=== PATIENT | female | born 1985 | race Caucasian/White ===

== ENCOUNTER 2022-11-11 04:36 | Observation (INO) | payer BC, SELFPAY ==
[2022-11-11] VITALS (13 sets, daily range): BP systolic 100–170; BP diastolic 54–103; PULSE 76–108; RESP 16–21; TEMP 36.7–37.1; O2SAT 93–99; BMI 53.1; BMI 62.8
--- NOTE | 2022-11-11 04:38 | CT_ITS ---
PROCEDURE INFORMATION: Exam: CT Abdomen And Pelvis With Contrast Exam date and time: 11/11/2022 5:25 AM Age: 37 years old Clinical indication: Nausea and vomiting; Abdominal pain; Epigastric; Additional info: Epigastric pain n/v/d TECHNIQUE: Imaging protocol: Computed tomography of the abdomen and pelvis with contrast. Radiation optimization: All CT scans at this facility use at least one of these dose optimization techniques: automated exposure control; mA and/or kV adjustment per patient size (includes targeted exams where dose is matched to clinical indication); or iterative reconstruction. Contrast material: ISOVUE; Contrast volume: 75 ml; Contrast route: IV; REPORTING DATA: Count of CT and Cardiac NM exams in prior 12 months: This patient has received 0 known CTs and 0 known cardiac nuclear medicine studies in the 12 months prior to the current study. COMPARISON: No relevant prior studies available. FINDINGS: Liver: The liver is low in density. Gallbladder and bile ducts: Prior cholecystectomy. Pancreas: Normal. No ductal dilation. Spleen: Normal. No splenomegaly. Adrenal glands: Normal. No mass. Kidneys and ureters: Normal. No hydronephrosis. Stomach and bowel: Unremarkable. No obstruction. No mucosal thickening. Appendix: No evidence of appendicitis. Intraperitoneal space: Unremarkable. No free air. No significant fluid collection. Vasculature: Unremarkable. No abdominal aortic aneurysm. Lymph nodes: There is some increased density in the central portion of the mesentery as well as some mildly prominent mesenteric lymph nodes. Urinary bladder: Unremarkable as visualized. Reproductive: 3.1 cm hypodensity in the right adnexa. Bones/joints: Unremarkable. No acute fracture. Soft tissues: Unremarkable. IMPRESSION: 1. No evidence of bowel obstruction or other acute process. 2. 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 3. Diffuse hepatic steatosis. 4. Prior cholecystectomy. 5. 3.1 cm right adnexal hypodensity likely prominent follicle.
[2022-11-11 04:53] LABS: Basophils % 0.1 % (0.1-2.0); Eosinophils # 0.2 K/mm3 (0.0-0.4); Eosinophils % 1.7 % (0.1-12.0); Hematocrit 45.2 % (37.0-47.0); Hemoglobin 14.6 g/dL (12.2-16.2); Lymphocytes # 1.6 K/mm3 (0.7-4.5); Lymphocytes % 12.4 % (10-50); Mean Corpuscular HGB Conc 32.2 g/dL (31.8-35.4); Mean Corpuscular Hemoglobin 27.3 pg (27.0-31.2); Mean Corpuscular Volume 84.7 fl (81-99); Mean Platelet Volume 8.1 fl (7.4-10.4); Monocytes # 0.3 K/mm3 (0.1-1.0); Monocytes % 2.3 % (1.7-9.3); Neutrophils # 10.6 K/mm3 (1.8-7.8); Neutrophils % 83.4 % (37.0-80.0); Platelet Count 490 K/mm3 (142-424); Red Blood Count 5.34 M/mm3 (4.20-5.40); White Blood Count 12.6 K/mm3 (4.8-10.8)
[2022-11-11 05:11] LABS: HCG Qualitative, Serum Negative (Negative)
[2022-11-11 05:24] LABS: Alanine Aminotransferase 28 U/L (12-78); Albumin/Globulin Ratio 1.3 (1.1-1.8); Alkaline Phosphatase 82 U/L (38-126); Amylase 55 U/L (30-110); Anion Gap 16.2 mEq/L (5-15); Aspartate Amino Transferase 40 U/L (14-36); Bilirubin,Total 0.6 mg/dl (0.2-1.3); Blood Urea Nitrogen 11 mg/dl (7-17); Calcium 8.2 mg/dl (8.4-10.2); Carbon Dioxide 24 mmol/L (22.0-30.0); Chloride 97 mmol/L (98-107); Creatinine Clearance Estimated 95 mL/min (50-200); Estimated Glomerular Filt Rate 94 ml/min (>60); GFR (African American) 114 ML/MIN (>60); Globulin 3.2 g/dL (1.3-3.2); Glucose 239 mg/dl (74-100); Lipase 51 U/L (23-300); Potassium 3.2 mmoL/L (3.5-5.1); Sodium 134 mmol/L (136-145); Total Protein,Serum 7.2 g/dl (6.3-8.2)
[2022-11-11 05:29] LABS: C-Reactive Protein 26.7 mg/L (0-4)
[2022-11-11 05:35] LABS: Erythrocyte Sedimentation Rate 27 mm/hr (0-20)
[2022-11-11 05:43] LABS: Procalcitonin 0.064 ng/mL (0.0-2.0)
[2022-11-11 05:52] LABS: Microscopic, Urine URINE MICROSCOPIC (MICROSCOPIC)
[2022-11-11 05:53] LABS: Blood, Urine 1+ (Negative); Color,Urine YELLOW (Yellow); Glucose,Urine (UA) Negative (Negative); Ketones,Urine 1+ (Negative); Leukocyte Esterase,Urine TRACE (Negative); Nitrate,Urine Negative (Negative); Protein,Urine 1+ (Negative); Specific Gravity, Urine 1.015 (1.005-1.030); Urobilinogen,Urine 0.2 EU/dl (0.2)
[2022-11-11 05:56] LABS: Appearance,Urine Slightly Cloudy (Clear); Bilirubin,Urine Negative (Negative)
[2022-11-11 06:14] LABS: Bacteria,Urine 1+ /lpf; WBC,Urine Occasional #/hpf (0-3)
--- NOTE | 2022-11-11 06:19 | HMH.EDABDPAI ---
Discharge Plan Disposition Chief Complaint: Abdominal Pain Prescriptions Prescriptions: No Action levothyroxine 175 mcg tablet 175 mcg PO DAILY lisinopril 20 mg tablet 20 mg PO DAILY norgestimate-ethinyl estradiol [Tri-Sprintec (28)] 0.18/0.215/0.25 mg-35 mcg (28) tablet 1 tab PO DAILY hydrochlorothiazide 25 mg tablet 25 mg PO DAILY colestipol 1 gram tablet 1 g PO DAILY escitalopram oxalate 20 mg tablet 20 mg PO DAILY Referrals Follow up/Referrals: Donnell Mason II, [Primary Care Provider] - See instructions Clinical Impressions Clinical Impression: Mesenteric panniculitis, DKA (diabetic ketoacidosis) Instructions Patient Instructions: DI for Acute Abdominal Pain Discharge ED Provider: Jesse (ED)Gray Abdominal Pain HPI General Chief Complaint: Abdominal Pain Stated Complaint: ABD Pain Time Seen by Provider: 11/11/22 06:00 Mode of Arrival: EMS Source of Information: Patient, Spouse and Medical Record Limitations: No Limitations Description of Symptoms (Recalled from ER Triage Doc. by RN): pt c/o epigastric pain n/v/d x 5 days. pt was seen at [facility] and was diagnosed with a virus History of Present Illness HPI narrative: patient presents with abd pain intermittent over the last 2 weeks - has hx of ibs-d and has diabetes mellitus - pt over the last few days increased with dec po intake and vomiting and some loose stool- pt has been at another hospital tuesday and tuesday of this week and was treated as viral illness- MD complaint: abdominal pain Onset (ago): day(s) Consistency: intermittent Location: diffuse Severity: moderate Quality: sharp Associated symptoms: vomiting Related Data Home Medications Medication Instructions Recorded Confirmed colestipol 1 gram tablet 1 g PO DAILY . 11/11/22 11/11/22 escitalopram oxalate 20 mg tablet 20 mg PO DAILY Depression 11/11/22 11/11/22 hydrochlorothiazide 25 mg tablet 25 mg PO DAILY High blood pressure 11/11/22 11/11/22 levothyroxine 175 mcg tablet 175 mcg PO DAILY thyorid 11/11/22 11/11/22 lisinopril 20 mg tablet 20 mg PO DAILY High blood pressure 11/11/22 11/11/22 norgestimate-ethinyl estradiol 1 tab PO DAILY control 11/11/22 11/11/22 0.18 mg/0.215mg/0.25mg-35 mcg(28)tablet (Tri-Sprintec (28)) Allergies Allergy/AdvReac Type Severity Reaction Status Date / Time No Known Allergies Allergy Verified 11/11/22 04:37 [facility] Disclaimer: The information contained in this section may have been updated after the patient was seen, as this information can be updated by other users. Social History Smoking Status: Never smoker alcohol intake: never current occupational status: employed Travel in the last 8 weeks: None ROS Obtained: Yes All systems reviewed & no additional complaints except as documented Physical Exam General General appearance: alert and obese Head Head exam: normocephalic Eye Eye exam: Present PERRL and EOMI; Absent scleral icterus ENT ENT exam: Present mucous membranes dry Neck Neck exam: Present trachea midline Respiratory Respiratory exam: Present normal lung sounds bilaterally; Absent respiratory distress Cardiovascular Cardiovascular exam: Present regular rate Abdominal Exam Abdominal exam: Present soft and tenderness; Absent guarding or rebound Abdominal tenderness: Present diffuse and moderate Extremities Exam Extremities exam: Present full ROM Neurological Exam Neurological exam: Present alert, oriented X3 and CN II-XII intact; Absent motor sensory deficit Psychiatric Psychiatric exam: Present normal affect Skin Skin exam: Absent rash Medical Decision Making Medical Records Medical records reviewed: Yes I reviewed the patient's medical records. Pete Inquiry Pt receiving controlled substance: No Vital Signs: 11/11/22 04:36 11/11/22 04:55 11/11/22 05:00 Temperature 98.1 F Temperature Source Oral Pulse Rate 89 87 Pulse
[2022-11-11 06:38] LABS: Acetone, Serum (Rapid) Small (None Detect)
[2022-11-11 07:10] LABS: Coronavirus 19, PCR Not Detected (NotDetected); Influenza A, PCR Not Detected (NotDetected); Influenza B, PCR Not Detected (NotDetected)
--- NOTE | 2022-11-11 07:39 | PC.NURSE ---
care management notified of admission
--- NOTE | 2022-11-11 07:40 | EXP.HP ---
History of Present Illness *Admission Date: 11/11/22 *Reason for visit:: abdominla pain, nausea and vomiting *History of present illness: 37-year female who has had 3 to 4 days of worsening nausea and vomiting. Also accompanied by some intermittent diarrhea. Has been complaining of epigastric pain. Presented to [place] the past 2 days to the ER with similar complaints, was sent home after IV fluids and reportedly benign work-up. Presents today with persistent pain. Emesis is bilious. No blood in vomit or stool. Patient is afebrile. Denies any syncope, chest pain, shortness of breath. Does complain of some mild chills.Arrival to the ER, work-up positive for elevated inflammatory markers. Has mild anion gap and elevated glucose. Urine positive for ketones. Positive for acetone. Patient intolerant of p.o. intake. She appears to have a mild DKA. CT of the abdomen shows mesenteric adenitis. Medicine consulted for admission. On evaluation, patient has not been able to tolerate any oral intake. Still complaining of upset stomach. Takes Prilosec at home with intermittent relief. Has history of irritable bowel, states that she occasionally vomits and feels better but this is only 1-2 times a month. Her symptoms have been significantly worse over the past several days. [facility] Disclaimer: The information contained in this section may have been updated after the patient was seen, as this information can be updated by other users. Medical History Anxiety Diabetes mellitus, type 2 Hypertension Hypothyroid Surgical History History of cholecystectomy History of left oophorectomy History of tonsillectomy Family History Family history of stroke Family history of hypertension Family history of hypothyroidism Social History Smoking Status: Never smoker alcohol intake: never current occupational status: unemployed Travel in the last 8 weeks: None Meds Home Medications and Allergies Home Medications Medication Instructions Recorded Confirmed Type colestipol 1 gram tablet 1 g PO DAILY Cholesterol 11/11/22 11/11/22 History escitalopram oxalate 20 mg tablet 20 mg PO DAILY Depression 11/11/22 11/11/22 History hydrochlorothiazide 25 mg tablet 25 mg PO DAILY High blood pressure 11/11/22 11/11/22 History levothyroxine 175 mcg tablet 175 mcg PO DAILY thyorid 11/11/22 11/11/22 History lisinopril 20 mg tablet 20 mg PO DAILY High blood pressure 11/11/22 11/11/22 History metformin 500 mg tablet,extended 500 mg PO BID Diabetes 11/11/22 11/11/22 History release 24 hr norgestimate-ethinyl estradiol 1 tab PO DAILY control 11/11/22 11/11/22 History 0.18 mg/0.215mg/0.25mg-35 mcg(28)tablet (Tri-Sprintec (28)) omeprazole magnesium 20 mg 20 mg PO DAILY Acid reflux 11/11/22 11/11/22 History tablet,delayed release (Prilosec OTC) New Prescriptions to Start Prescriptions: Allergies Allergy/AdvReac Type Severity Reaction Status Date / Time No Known Allergies Allergy Verified 11/11/22 04:37 Exam Data for Last 24 hours Vital signs and Labs for Last 24 Hours: Temp Pulse Resp BP Pulse Ox 98.1 F 102 H 21 139/57 L 97 11/11/22 04:36 11/11/22 07:30 11/11/22 04:36 11/11/22 06:30 11/11/22 07:30 Laboratory Results - last 24 hr 11/11/22 04:38: WBC 12.6 H, RBC 5.34, Hgb 14.6, Hct 45.2, MCV 84.7, MCH 27.3, MCHC 32.2, RDW 14.0, Plt Count 490 H, MPV 8.1, Neut % (Auto) 83.4 H, Lymph % (Auto) 12.4, [place] % (Auto) 2.3, Eos % (Auto) 1.7, Baso % (Auto) 0.1, Neut # (Auto) 10.6 H, Lymph # (Auto) 1.6, [place] # (Auto) 0.3, Eos # (Auto) 0.2, Baso # (Auto) 0.0, ESR 27 H 11/11/22 04:38: Serum HCG, Qual Negative 11/11/22 04:38: Acetone Level Small 11/11/22 05:10: Sodium 134 L, Potassium 3.2 L, Chloride 97
--- NOTE | 2022-11-11 08:31 | PC.NURSE ---
report given to dimple singh
[2022-11-11 08:38] LABS: Hemoglobin A1C 7.6 % (4.0-6.0)
--- NOTE | 2022-11-11 08:50 | PC.NURSE ---
PT REPORTS NAUSEA HAS RESOLVED AFTER MEDICATION, NO NEEDS AT THIS TIME. PT UPDATED ON POC AND WILL BE MOVED TO [facility] SOON
[2022-11-11 08:52] LABS: Thyroid Stimulating Hormone 3.88 uIU/mL (0.465-4.68)
[2022-11-11 10:35] LABS: POC Glucose,Bedside 236 (70-110)
--- NOTE | 2022-11-11 10:55 | PC.NURSE ---
COURTESY TECH NOTE; ROUNDED ON PT 1000, PT DENIED NEED FOR DRINK, ASSISTANCE WITH RESTROOM, NEED TO REPOSITION. CALL LIGHT WITHIN REACH, NO FURTHER REQUESTS AT THIS TIME ANIKA OLIVAS
--- NOTE | 2022-11-11 11:28 | HMH.PHAINT1 ---
Pharmacy Intervention Comments: MEDICATION RECONCILIATION COMPLETED USING EXTERNAL FILL HISTORY FROM OUTSIDE PHARMACY AND PATIENT INTERVIEW
--- NOTE | 2022-11-11 14:15 | PC.NURSE ---
Pt. states pain level is at a 2/10 after toradol 30 mg IV.
[2022-11-11 16:34] LABS: POC Glucose,Bedside 166 (70-110)
[2022-11-11 18:52] LABS: Adenovirus F 40/41, stool Not Detected (NotDetected); Astrovirus Not Detected (NotDetected); Campylobacter Not Detected (NotDetected); Clostridium Difficile A/B, PCR Not Detected (NotDetected); Cryptosporidium Not Detected (NotDetected); Cyclospora Cayetanesis Not Detected (NotDetected); Entamoeba histolytica Not Detected (NotDetected); Enteroaggregative E coli Not Detected (NotDetected); Enteropathogenic E coli Not Detected (NotDetected); Enterotoxigenic E coli Not Detected (NotDetected); Giardia lamblia Not Detected (NotDetected); Norovirus Not Detected (NotDetected); Plesimonas Shigalloides, PCR Not Detected (NotDetected); Rotavirus A Not Detected (NotDetected); Salmonella, PCR Not Detected (NotDetected); Sapovirus Not Detected (NotDetected); Shiga-like toxin E coli Not Detected (NotDetected); Shigella Enterovasive E coli Not Detected (NotDetected); Vibrio Cholerae Not Detected (NotDetected); Vibrio, PCR Not Detected (NotDetected); Yersinia Entercolitica, PCR Not Detected (NotDetected)
[2022-11-11 20:34] LABS: POC Glucose,Bedside 234 (70-110)
[2022-11-12 04:00] VITALS: BP 150/92; PULSE 73; RESP 18; TEMP 36.7; O2SAT 99; BMI 62.9
[2022-11-12 05:24] LABS: POC Glucose,Bedside 153 (70-110)
[2022-11-12 06:26] LABS: Basophils % 0.3 % (0.1-2.0); Eosinophils # 0.2 K/mm3 (0.0-0.4); Eosinophils % 2.3 % (0.1-12.0); Hematocrit 38.7 % (37.0-47.0); Hemoglobin 12.3 g/dL (12.2-16.2); Lymphocytes # 2.6 K/mm3 (0.7-4.5); Lymphocytes % 39.3 % (10-50); Mean Corpuscular HGB Conc 31.8 g/dL (31.8-35.4); Mean Corpuscular Hemoglobin 27.3 pg (27.0-31.2); Mean Corpuscular Volume 85.8 fl (81-99); Mean Platelet Volume 8.1 fl (7.4-10.4); Monocytes # 0.3 K/mm3 (0.1-1.0); Neutrophils # 3.5 K/mm3 (1.8-7.8); Neutrophils % 54.2 % (37.0-80.0); Platelet Count 330 K/mm3 (142-424); Red Blood Count 4.51 M/mm3 (4.20-5.40); Red Cell Distribution Width 13.9 % (11.5-17.5); White Blood Count 6.5 K/mm3 (4.8-10.8)
[2022-11-12 06:27] LABS: Chloride 102 mmol/L (98-107)
[2022-11-12 06:28] LABS: Potassium 3.1 mmoL/L (3.5-5.1); Sodium 136 mmol/L (136-145)
[2022-11-12 06:30] LABS: Alanine Aminotransferase 23 U/L (12-78); Aspartate Amino Transferase 59 U/L (14-36); Blood Urea Nitrogen 10 mg/dl (7-17); Creatinine Clearance Estimated 95 mL/min (50-200); Estimated Glomerular Filt Rate 94 ml/min (>60); GFR (African American) 114 ML/MIN (>60)
[2022-11-12 06:31] LABS: Albumin Level 3.3 g/dl (3.5-5.0); Albumin/Globulin Ratio 1.2 (1.1-1.8); Alkaline Phosphatase 70 U/L (38-126); Anion Gap 14.1 mEq/L (5-15); Bilirubin,Total 0.4 mg/dl (0.2-1.3); Calcium 7.5 mg/dl (8.4-10.2); Carbon Dioxide 23 mmol/L (22.0-30.0); Globulin 2.8 g/dL (1.3-3.2); Glucose 160 mg/dl (74-100); Magnesium 2.1 mg/dl (1.6-2.3); Total Protein,Serum 6.1 g/dl (6.3-8.2)
[2022-11-12 07:58] VITALS: BP 150/82; PULSE 101; RESP 16; TEMP 36.7; O2SAT 97
--- NOTE | 2022-11-12 10:13 | PC.NURSE ---
COURTESY TECH NOTE; ROUNDED ON PT 0835, PT DENIED NEED FOR DRINK, ASSISTANCE WITH RESTROOM, NEED TO REPOSITION. REFUSAL FOR BREAKFAST TRAY. PT C/O NAUSEA, NOTIFIED NURSE. CALL LIGHT WITHIN REACH, NO FURTHER REQUESTS AT THIS TIME Bart BARBA, ANIKA
[2022-11-12 11:06] LABS: POC Glucose,Bedside 189 (70-110)
--- NOTE | 2022-11-12 13:05 | PC.NURSE ---
COURTESY TECH NOTE; ROUNDED ON PT 1135, PT FINISHING SHOWER AT THIS TIME, ACTIVITY TOLERATED WELL, ASSISTED PT WITH LINEN CHANGE, PT DENIED NEED FOR ASSISTANCE WITH RESTROOM, DRINK, OR REPOSITIONING. CALL LIGHT WITHIN REACH, NO FURTHER REQUESTS AT THIS TIME Bart BARBA, ANIKA
--- NOTE | 2022-11-12 13:06 | EXP.DC.SUM ---
General Admission date:: 11/11/22 Discharge date: 11/12/22 HPI HPI HPI: 37-year female who has had 3 to 4 days of worsening nausea and vomiting. Also accompanied by some intermittent diarrhea. Has been complaining of epigastric pain. Presented to [place] the past 2 days to the ER with similar complaints, was sent home after IV fluids and reportedly benign work-up. Presents today with persistent pain. Emesis is bilious. No blood in vomit or stool. Patient is afebrile. Denies any syncope, chest pain, shortness of breath. Does complain of some mild chills.Arrival to the ER, work-up positive for elevated inflammatory markers. Has mild anion gap and elevated glucose. Urine positive for ketones. Positive for acetone. Patient intolerant of p.o. intake. She appears to have a mild DKA. CT of the abdomen shows mesenteric adenitis. Medicine consulted for admission. On evaluation, patient has not been able to tolerate any oral intake. Still complaining of upset stomach. Takes Prilosec at home with intermittent relief. Has history of irritable bowel, states that she occasionally vomits and feels better but this is only 1-2 times a month. Her symptoms have been significantly worse over the past several days. Exam Data for Last 24 hours Vital signs and Labs for Last 24 Hours: Temp Pulse Resp BP Pulse Ox 98.0 F 101 H 16 150/82 H 97 11/12/22 07:58 11/12/22 07:58 11/12/22 07:58 11/12/22 07:58 11/12/22 07:58 Laboratory Results - last 24 hr 11/11/22 16:20: Stl Aeromonas (PCR) Not detected, Stl C. cayetanensis PCR Not detected, Stool Rotavirus (PCR) Not detected, Stl Adenov F 40/41 PCR Not detected, Stool Astrovirus (PCR) Not detected, Stool Campylobacter PCR Not detected, Stl C.difficile Tox PCR Not detected, Stool Cryptosporidium PCR Not detected, Stl E.coli Shiga Tox PCR Not detected, Stool E coli O157 PCR Not detected, Stl Enterotoxigenic E PCR Not detected, Stool EPEC (PCR) Not detected, Stool EAEC (PCR) Not detected, Stl E. histolytica PCR Not detected, Stool Giardia Lamblia PCR Not detected, Stool Salmonella PCR Not detected, Stool Sapovirus (PCR) Not detected, Stl P. shigelloides PCR Not detected, Stl Shigella/EIEC PCR Not detected, St Y.enterocolitica PCR Not detected, Stool Vibrio (PCR) Not detected, Stl Vibrio cholerae PCR Not detected, Stl Norovirus GI/GII PCR Not detected 11/11/22 16:26: POC Glucose 166 H 11/11/22 20:28: POC Glucose 234 H 11/12/22 05:14: POC Glucose 153 H 11/12/22 05:54: WBC 6.5 D, RBC 4.51, Hgb 12.3, Hct 38.7, MCV 85.8, MCH 27.3, MCHC 31.8, RDW 13.9, Plt Count 330 D, MPV 8.1, Neut % (Auto) 54.2, Lymph % (Auto) 39.3, [place] % (Auto) 4.0, Eos % (Auto) 2.3, Baso % (Auto) 0.3, Neut # (Auto) 3.5, Lymph # (Auto) 2.6, [place] # (Auto) 0.3, Eos # (Auto) 0.2, Baso # (Auto) 0.0 11/12/22 05:54: Sodium 136, Potassium 3.1 L, Chloride 102, Carbon Dioxide 23, Anion Gap 14.1, BUN 10, Creatinine 0.70, Estimated Creat Clear 95, Estimated GFR 94, Est GFR ( Amer) 114, Glucose 160 H, Calcium 7.5 L, Magnesium 2.1, Total Bilirubin 0.4, AST 59 H D, ALT 23, Alkaline Phosphatase 70, Total Protein 6.1 L, Albumin 3.3 L D, Globulin 2.8, Albumin/Globulin Ratio 1.2 11/12/22 10:49: POC Glucose 189 H I & O for Last 24 hours: Intake & Output 11/09/22 11/10/22 11/11/22 11/12/22 23:59 23:59 23:59 23:59 Intake Total 600 / 2277 2156 Output Total 0 / 0 0 / 0 Balance 600 / 2277 2156 Weight 166.242 kg 167.194 kg Constitutional Constitutional: no acute distress *Routine HEENT Exam Head: Present normocephalic Eye: Present EOMI and PERRL ENT: Present mucous membranes moist *Routine Neck Exam Neck: Present supple; Absent lymphadenopathy *Routine Respiratory Exam Respiratory: Present CTA bilaterally *Routine Cardiovascular Exam Cardiovascular: Present RRR *Routine Abdominal Exam Abdominal: Present soft and normoactive bowel sounds; Absent tenderness *Routine Extremities Exam Extremities: Absent cyanos
[2022-11-12 13:41] VITALS: BMI 62.8
[2022-11-12 15:18] VITALS: BP 150/76; PULSE 86; RESP 20; TEMP 36.6; O2SAT 96
--- NOTE | 2022-11-12 18:09 | EXP.ACUTE.PN ---
Subjective *Date: 11/12/22 *Time: 18:09 Interval history: Patient initially well this morning, has had waxing and waning pain however throughout the day. Worse after eating. Vomited again this morning. Denies any fever, complaining of chills when she has nausea. Stable on room air. No chest pain or shortness of breath. Episode of diarrhea this morning. No blood in vomit or stool. Medical Exam Vital signs and Labs for Last 24 Hours: Vital Signs Temp Pulse Resp BP Pulse Ox 11/12/22 15:18 97.9 F 86 20 150/76 H 96 11/12/22 07:58 98.0 F 101 H 16 150/82 H 97 11/12/22 04:00 98.1 F 73 18 150/92 H 99 11/11/22 20:00 98.0 F 76 16 126/61 96 Intake and Output 11/12/22 11/12/22 11/12/22 07:59 15:59 23:59 Intake Total 1677 / 2157 480 / 2157 Output Total 0 / 0 0 / 0 0 / 0 Balance 1677 / 2157 480 / 2157 0 / 2157 Intake: Intake, Oral Amount 480 / 480 Intake, Other Amount 1677 / 1677 Output: Output, Urine Amount 0 / 0 0 / 0 0 / 0 Other: Intake, Other Source Saline Solution Number of Unmeasured Voids 1 1 1 Weight 167.194 kg 167 kg Patient Weight 11/12/22 23:59 Weight 167 kg Laboratory Results - last 24 hr 11/11/22 16:20: Stl Aeromonas (PCR) Not detected, Stl C. cayetanensis PCR Not detected, Stool Rotavirus (PCR) Not detected, Stl Adenov F 40/41 PCR Not detected, Stool Astrovirus (PCR) Not detected, Stool Campylobacter PCR Not detected, Stl C.difficile Tox PCR Not detected, Stool Cryptosporidium PCR Not detected, Stl E.coli Shiga Tox PCR Not detected, Stool E coli O157 PCR Not detected, Stl Enterotoxigenic E PCR Not detected, Stool EPEC (PCR) Not detected, Stool EAEC (PCR) Not detected, Stl E. histolytica PCR Not detected, Stool Giardia Lamblia PCR Not detected, Stool Salmonella PCR Not detected, Stool Sapovirus (PCR) Not detected, Stl P. shigelloides PCR Not detected, Stl Shigella/EIEC PCR Not detected, St Y.enterocolitica PCR Not detected, Stool Vibrio (PCR) Not detected, Stl Vibrio cholerae PCR Not detected, Stl Norovirus GI/GII PCR Not detected 11/11/22 20:28: POC Glucose 234 H 11/12/22 05:14: POC Glucose 153 H 11/12/22 05:54: WBC 6.5 D, RBC 4.51, Hgb 12.3, Hct 38.7, MCV 85.8, MCH 27.3, MCHC 31.8, RDW 13.9, Plt Count 330 D, MPV 8.1, Neut % (Auto) 54.2, Lymph % (Auto) 39.3, [place] % (Auto) 4.0, Eos % (Auto) 2.3, Baso % (Auto) 0.3, Neut # (Auto) 3.5, Lymph # (Auto) 2.6, [place] # (Auto) 0.3, Eos # (Auto) 0.2, Baso # (Auto) 0.0 11/12/22 05:54: Sodium 136, Potassium 3.1 L, Chloride 102, Carbon Dioxide 23, Anion Gap 14.1, BUN 10, Creatinine 0.70, Estimated Creat Clear 95, Estimated GFR 94, Est GFR ( Amer) 114, Glucose 160 H, Calcium 7.5 L, Magnesium 2.1, Total Bilirubin 0.4, AST 59 H D, ALT 23, Alkaline Phosphatase 70, Total Protein 6.1 L, Albumin 3.3 L D, Globulin 2.8, Albumin/Globulin Ratio 1.2 11/12/22 10:49: POC Glucose 189 H I & O for Labs for Last 24 Hours: Intake & Output 11/09/22 11/10/22 11/11/22 11/12/22 23:59 23:59 23:59 23:59 Intake Total 600 / 2277 2156 Output Total 0 / 0 0 / 0 Balance / 2276 Weight 166.242 kg 167 kg Constitutional: Present no acute distress and morbidly obese Head: Present atraumatic and normocephalic ENT: Present normal exam Neck: Present normal inspection Respiratory: Present normal respiratory effort; Absent rhonchi, wheezes or crackles Cardiac: Present Reg Rate and Rhythm GI: Present soft, tenderness (Epigastric) and normal bowel sounds; Absent distention, guarding or rebound Extremities: Present normal inspection and full ROM Skin: Present intact; Absent erythema Neuro: Present Grossly Intact, alert, awake, oriented x 3 and moves all extremities Assessment and Plan *Assessment and plan (1) Mesenteric panniculitis: Status: Acute Category: Medical Code(s): 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
--- NOTE | 2022-11-12 18:45 | PC.NURSE ---
PT HAS REQUIRED MULTIPLE DOSES OF PAIN AND NAUSEA MEDICINE THIS SHIFT. ALSO RECEIVED GI COCKTAIL. AMBULATED IN ROOM INDEPENDENTLY AND SPENT A CPL HOURS UP TO CHAIR.
[2022-11-12 20:00] VITALS: BP 108/64; PULSE 69; RESP 18; TEMP 36.6; O2SAT 94
[2022-11-12 21:45] LABS: POC Glucose,Bedside 129 (70-110)
[2022-11-12 21:45] LABS: POC Glucose,Bedside 174 (70-110)
[2022-11-13] VITALS: BP 110/54; PULSE 75; RESP 18; TEMP 36.9; O2SAT 92
[2022-11-13 04:00] VITALS: BP 120/69; PULSE 80; RESP 18; TEMP 36.5; O2SAT 97; BMI 62.8
[2022-11-13 05:39] LABS: POC Glucose,Bedside 157 (70-110)
[2022-11-13 07:15] VITALS: BP 157/87; PULSE 89; RESP 18; TEMP 36.9; O2SAT 96
[2022-11-13 07:46] LABS: Basophils % 0.4 % (0.1-2.0); Eosinophils # 0.1 K/mm3 (0.0-0.4); Eosinophils % 2.2 % (0.1-12.0); Hematocrit 41.8 % (37.0-47.0); Hemoglobin 13.5 g/dL (12.2-16.2); Lymphocytes % 33.8 % (10-50); Mean Corpuscular HGB Conc 32.4 g/dL (31.8-35.4); Mean Corpuscular Hemoglobin 27.6 pg (27.0-31.2); Mean Corpuscular Volume 85.2 fl (81-99); Mean Platelet Volume 7.6 fl (7.4-10.4); Monocytes # 0.3 K/mm3 (0.1-1.0); Monocytes % 4.6 % (1.7-9.3); Neutrophils # 3.6 K/mm3 (1.8-7.8); Platelet Count 302 K/mm3 (142-424); Red Blood Count 4.91 M/mm3 (4.20-5.40); Red Cell Distribution Width 13.9 % (11.5-17.5)
[2022-11-13 07:51] LABS: Chloride 100 mmol/L (98-107)
[2022-11-13 07:52] LABS: Potassium 3.1 mmoL/L (3.5-5.1); Sodium 138 mmol/L (136-145)
[2022-11-13 07:54] LABS: Alanine Aminotransferase 46 U/L (12-78); Alkaline Phosphatase 73 U/L (38-126); Anion Gap 13.1 mEq/L (5-15); Aspartate Amino Transferase 82 U/L (14-36); Bilirubin,Total 0.3 mg/dl (0.2-1.3); Blood Urea Nitrogen 8 mg/dl (7-17); Carbon Dioxide 28 mmol/L (22.0-30.0); Creatinine Clearance Estimated 83 mL/min (50-200); Estimated Glomerular Filt Rate 81 ml/min (>60); GFR (African American) 98 ML/MIN (>60)
[2022-11-13 07:55] LABS: Albumin Level 3.8 g/dl (3.5-5.0); Albumin/Globulin Ratio 1.3 (1.1-1.8); Glucose 125 mg/dl (74-100); Total Protein,Serum 6.8 g/dl (6.3-8.2)
--- NOTE | 2022-11-13 08:48 | PC.NURSE ---
PT NAUSEOUS WITH DRY HEAVES ON INITIAL ASSESSMENT. PRN ANTI EMETICS GIVEN PER MAR. WILL WAIT TO ADMIN MORNING MEDICATIONS UNTIL MEDICATIONS TAKE EFFECT PER PT REQUEST.
[2022-11-13 11:46] LABS: POC Glucose,Bedside 164 (70-110)
[2022-11-13 15:12] VITALS: BP 108/56; PULSE 84; RESP 18; TEMP 37.1; O2SAT 94
--- NOTE | 2022-11-13 15:32 | EXP.DC.SUM ---
General Admission date:: 11/11/22 Discharge date: 11/13/22 HPI HPI HPI: 37-year female who has had 3 to 4 days of worsening nausea and vomiting. Also accompanied by some intermittent diarrhea. Has been complaining of epigastric pain. Presented to [place] the past 2 days to the ER with similar complaints, was sent home after IV fluids and reportedly benign work-up. Presents today with persistent pain. Emesis is bilious. No blood in vomit or stool. Patient is afebrile. Denies any syncope, chest pain, shortness of breath. Does complain of some mild chills.Arrival to the ER, work-up positive for elevated inflammatory markers. Has mild anion gap and elevated glucose. Urine positive for ketones. Positive for acetone. Patient intolerant of p.o. intake. She appears to have a mild DKA. CT of the abdomen shows mesenteric adenitis. Medicine consulted for admission. On evaluation, patient has not been able to tolerate any oral intake. Still complaining of upset stomach. Takes Prilosec at home with intermittent relief. Has history of irritable bowel, states that she occasionally vomits and feels better but this is only 1-2 times a month. Her symptoms have been significantly worse over the past several days. Hospital Course Hospital Course Hospital Course: Patient began complaining of abdominal pain, vomiting and diagnosed with DKA. Patient receiving routine DKA management during hospitalization, with gap closing steadily during hospitalization. Patient continued on metformin during hospitalization, with Januvia added to patient's outpatient oral diabetic treatment regimen. Patient also received as needed insulin during hospitalizatio patient also advised to follow-up with PCP n. 1 of hospital discharge for continued blood sugar disconnect and clinical outpatient management. Patient suffered from residual nausea, relieved with Compazine during hospitalization. Patient's diet advanced to diabetic for large 11/13/2022 which was well-tolerated with minimal nausea resolved by Compazine. Patient subsequently sent home on p.o. Compazine, and instructed to follow-up with primary care physician on outpatient basis. Patient also diagnosed with gastroenteritis during hospitalization. Patient's diarrhea/abdominal discomfort steadily improved during hospitalization. Patient is omeprazole was discontinued and upgraded to Protonix during hospital discharge. Patient also started on fiber, to improve stool consistency during hospitalization. FiberCon continued as outpatient at time of hospital disposition. Exam Data for Last 24 hours Vital signs and Labs for Last 24 Hours: Temp Pulse Resp BP Pulse Ox 98.7 F 84 18 108/56 L 94 L 11/13/22 15:12 11/13/22 15:12 11/13/22 15:12 11/13/22 15:12 11/13/22 15:12 Laboratory Results - last 24 hr 11/12/22 16:39: POC Glucose 174 H 11/12/22 21:38: POC Glucose 129 H 11/13/22 05:31: POC Glucose 157 H 11/13/22 07:12: WBC 6.0, RBC 4.91, Hgb 13.5, Hct 41.8, MCV 85.2, MCH 27.6, MCHC 32.4, RDW 13.9, Plt Count 302, MPV 7.6, Neut % (Auto) 59.0, Lymph % (Auto) 33.8, [place] % (Auto) 4.6, Eos % (Auto) 2.2, Baso % (Auto) 0.4, Neut # (Auto) 3.6, Lymph # (Auto) 2.0, [place] # (Auto) 0.3, Eos # (Auto) 0.1, Baso # (Auto) 0.0 11/13/22 07:12: Sodium 138, Potassium 3.1 L, Chloride 100, Carbon Dioxide 28, Anion Gap 13.1, BUN 8, Creatinine 0.80, Estimated Creat Clear 83, Estimated GFR 81, Est GFR ( Amer) 98, Glucose 125 H, Calcium 8.0 L, Magnesium 2.0, Total Bilirubin 0.3, AST 82 H D, ALT 46 D, Alkaline Phosphatase 73, Total Protein 6.8, Albumin 3.8 D, Globulin 3.0, Albumin/Globulin Ratio 1.3 11/13/22 11:35: POC Glucose 164 H I & O for Last 24 hours: Intake & Output 11/10/22 11/11/22 11/12/22 11/13/22 23:59 23:59 23:59 23:59 Intake Total 600 / 2277 7 / 7 480 / 480 Output Total 0 / 0 200 / 200 0 / 0 Balance 600 / 2277 1956 / 2196 480 / 480 Weight 166.242 kg 167 kg 167.12 kg Microbiology
--- NOTE | 2022-11-15 15:14 | CARE MANAGER ---
Left message for post-discharge phone interview.
--- NOTE | 2022-11-16 13:39 | CARE MANAGER ---
Attempted to contact patient x2 related to hospital discharge. No VM option. MEI Mchugh
== END 2022-11-13 15:51 | disposition home or self-care (01) ==
LOC: ER 06:50 → 2ND 08:30
PROVIDERS: Admitting Provider Internal Medicine Adolescent Medicine; Emergency Provider Emergency Medicine; PCP Student in an Organized Health Care Education/Training Program; Visit Provider Internal Medicine Adolescent Medicine
DX: E11.10 Type 2 diabetes mellitus with ketoacidosis without coma (principal); E66.2 Morbid (severe) obesity with alveolar hypoventilation; Z68.43 Body mass index [BMI] 50.0-59.9, adult; E03.9 Hypothyroidism, unspecified; I10 Essential (primary) hypertension; K65.4 Sclerosing mesenteritis; Z79.899 Other long term (current) drug therapy; Z79.4 Long term (current) use of insulin
CPT/HCPCS: 36415; 74177; 80053; 81001; 82009; 82150; 82962; 83036; 83690; 83735; 84145; 84443; 84703; 85025; 85651; 86140; 87086; 87507; 87636; 99285; C9803; G0378; J2405; Q9967; U0003; U0005

== ENCOUNTER 2022-11-17 11:43 | Observation (INO) | payer BC, SELFPAY ==
[2022-11-17] VITALS (8 sets, daily range): BP systolic 142–167; BP diastolic 79–98; PULSE 101–115; RESP 16–20; TEMP 36.6–37; O2SAT 94–98; BMI 45.7; BMI 60.7
--- NOTE | 2022-11-17 11:55 | HMH.EDGENADL ---
Discharge Plan Disposition Patient Disposition: Admitted Condition: Fair Chief Complaint: Nausea/Vomiting/Diarrhea Prescriptions Prescriptions: No Action levothyroxine 175 mcg tablet 175 mcg PO DAILY lisinopril 20 mg tablet 20 mg PO DAILY norgestimate-ethinyl estradiol [Tri-Sprintec (28)] 0.18/0.215/0.25 mg-35 mcg (28) tablet 1 tab PO DAILY hydrochlorothiazide 25 mg tablet 25 mg PO DAILY colestipol 1 gram tablet 1 g PO DAILY escitalopram oxalate 20 mg tablet 20 mg PO DAILY metformin 500 mg tablet extended release 24 hr 500 mg PO BID albuterol sulfate [Ventolin HFA] 90 mcg/actuation HFA aerosol inhaler 2 puff INHALATION NEEDED PRN (Reason: Shortness Of Breath) acetaminophen 325 mg Tablet 650 mg PO Q6HP PRN (Reason: MILD TO MODERATE PAIN) Qty: 0 0RF calcium polycarbophil [FiberCon] 625 mg Tablet 1,250 mg PO BID 30 Days Qty: 120 0RF Januvia 50 mg tablet 50 mg PO DAILY 30 Days Qty: 30 0RF pantoprazole 40 mg tablet,delayed release (DR/EC) 40 mg PO DAILY 30 Days Qty: 30 0RF prochlorperazine maleate [Compazine] 10 mg tablet 10 mg PO Q8H PRN (Reason: nausea and vomiting) Qty: 30 2RF tramadol 50 mg Tablet 50 mg PO Q6HP PRN (Reason: Mild To Moderate Pain) 3 Days Qty: 12 0RF Referrals Follow up/Referrals: Donnell Mason II, [Primary Care Provider] - See instructions Clinical Impressions Clinical Impression: Diabetic gastroparesis, Intractable vomiting Discharge ED Provider: Carlos Sanchez General Adult HPI General Chief complaint: Nausea/Vomiting/Diarrhea Stated complaint: Persistant vomiting, upper stomache pain Time Seen by Provider: 11/17/22 12:27 History of Present Illness HPI narrative: This is a 37-year-old female who was just admitted recently to the hospital for similar complaints and presents with intermittent epigastric pain that is nonradiating accompanied by intractable vomiting for the past 3 weeks no diarrhea the pain describes simply as pain nonprovoked not palliated. No melena hematochezia or hematemesis no chest pain pressure heaviness no dysuria pyuria hematuria no fevers or chills. Related Data Home Medications Medication Instructions Recorded Confirmed colestipol 1 gram tablet 1 g PO DAILY Cholesterol 11/11/22 11/11/22 escitalopram oxalate 20 mg tablet 20 mg PO DAILY Depression 11/11/22 11/11/22 hydrochlorothiazide 25 mg tablet 25 mg PO DAILY High blood pressure 11/11/22 11/11/22 levothyroxine 175 mcg tablet 175 mcg PO DAILY thyorid 11/11/22 11/11/22 lisinopril 20 mg tablet 20 mg PO DAILY High blood pressure 11/11/22 11/11/22 metformin 500 mg tablet,extended 500 mg PO BID Diabetes 11/11/22 11/11/22 release 24 hr norgestimate-ethinyl estradiol 1 tab PO DAILY control 11/11/22 11/11/22 0.18 mg/0.215mg/0.25mg-35 mcg(28)tablet (Tri-Sprintec (28)) albuterol sulfate 90 mcg/actuation 2 puff inhalation NEEDED PRN 11/12/22 11/12/22 aerosol inhaler (Ventolin HFA) Shortness Of Breath Previous Rx's Medication Instructions Recorded acetaminophen 325 mg tablet 650 mg PO Q6HP PRN MILD TO 11/12/22 MODERATE PAIN #0 tabs calcium polycarbophil 625 mg 1,250 mg PO BID 30 days #120 tabs 11/12/22 tablet (FiberCon) pantoprazole 40 mg tablet,delayed 40 mg PO DAILY 30 days #30 tabs 11/12/22 release sitagliptin phosphate 50 mg tablet 50 mg PO DAILY 30 days #30 tabs 11/12/22 (Januvia) prochlorperazine maleate 10 mg 10 mg PO Q8H PRN nausea and 11/13/22 tablet (Compazine) vomiting #30 tabs tramadol 50 mg tablet 50 mg PO Q6HP PRN Mild To Moderate 11/13/22 Pain 3 days #12 tabs Allergies Allergy/AdvReac Type Severity Reaction Status Date / Time No Known Allergies Allergy Verified 11/11/22 04:37 [facility] Disclaimer: The information contained in this section may have been updated after the patient was seen, as this information can be updated by other users. Medical History (Reviewed
[2022-11-17 12:27] LABS: Basophils % 0.2 % (0.1-2.0); Eosinophils # 0.1 K/mm3 (0.0-0.4); Eosinophils % 0.9 % (0.1-12.0); Hematocrit 44.3 % (37.0-47.0); Hemoglobin 14.7 g/dL (12.2-16.2); Lymphocytes # 0.8 K/mm3 (0.7-4.5); Lymphocytes % 7.2 % (10-50); Mean Corpuscular HGB Conc 33.2 g/dL (31.8-35.4); Mean Corpuscular Hemoglobin 27.9 pg (27.0-31.2); Mean Corpuscular Volume 84.2 fl (81-99); Mean Platelet Volume 7.8 fl (7.4-10.4); Monocytes # 0.3 K/mm3 (0.1-1.0); Monocytes % 2.9 % (1.7-9.3); Neutrophils # 10.1 K/mm3 (1.8-7.8); Neutrophils % 88.7 % (37.0-80.0); Platelet Count 414 K/mm3 (142-424); Red Blood Count 5.26 M/mm3 (4.20-5.40); White Blood Count 11.3 K/mm3 (4.8-10.8)
[2022-11-17 12:29] LABS: MANUAL DIFFERENTIAL MANUAL DIFFERENTIAL (MANUAL DIFF)
[2022-11-17 12:43] LABS: Lactic Acid 1.3 mmol/L (0.7-2.1)
[2022-11-17 12:47] LABS: Acetone, Serum (Rapid) Small (None Detect)
[2022-11-17 12:52] LABS: Lipase 52 U/L (23-300)
[2022-11-17 12:52] LABS: Alanine Aminotransferase 54 U/L (12-78); Albumin Level 4.4 g/dl (3.5-5.0); Albumin/Globulin Ratio 1.6 (1.1-1.8); Alkaline Phosphatase 94 U/L (38-126); Anion Gap 23.5 mEq/L (5-15); Aspartate Amino Transferase 50 U/L (14-36); Bilirubin,Total 0.9 mg/dl (0.2-1.3); Blood Urea Nitrogen 10 mg/dl (7-17); Calcium 9.3 mg/dl (8.4-10.2); Carbon Dioxide 21 mmol/L (22.0-30.0); Chloride 95 mmol/L (98-107); Creatinine Clearance Estimated 87 mL/min (50-200); Estimated Glomerular Filt Rate 81 ml/min (>60); GFR (African American) 98 ML/MIN (>60); Globulin 2.8 g/dL (1.3-3.2); Glucose 193 mg/dl (74-100); Potassium 3.5 mmoL/L (3.5-5.1); Sodium 136 mmol/L (136-145); Total Protein,Serum 7.2 g/dl (6.3-8.2)
[2022-11-17 12:57] LABS: Lymphocytes % 10 % (10-50); Monocytes % 4 % (2-9); Neutrophils % 86 % (42-76); Platelet Estimate Normal; RBC Morphology Normal; Total Cells Counted 100
--- NOTE | 2022-11-17 12:57 | CT_ITS ---
FINAL REPORT TECHNIQUE: After the administration of oral and intravenous contrast, axial images were obtained through the abdomen and pelvis by computed tomography. The study was performed with techniques to keep radiation dose as low as reasonably achievable, (ALARA). Individual dose reduction techniques using automated exposure control or adjustment of mA and/or kV according to the patient's size were employed. CLINICAL HISTORY: abd pain COMPARISON: 11/11/2022 FINDINGS: Abdomen: There is a small amount of scarring present in the lingula. There is mild fatty infiltration of the liver. The gallbladder is surgically absent. The pancreas, adrenals and kidneys appear unremarkable. The spleen is at the upper limits of normal in size. The aorta is normal in caliber. There is no free fluid or adenopathy. Pelvis: The appendix is normal in appearance. The urinary bladder is normal in appearance. The uterus is deviated slightly to the patient's left, and there is a cyst or follicle in the right ovary measuring 2.5 cm in diameter. No free fluid is present in the pelvis. IMPRESSION: No acute intra-abdominal process. Mild fatty infiltration of the liver, absent gallbladder. Uterus deviated slightly to the left with a 2.5 cm cyst or follicle in the right ovary. Reviewed, Interpreted and Dictated by James Bo MD Transcribed by Nishi Llamas Authenticated and . [facility]
[2022-11-17 13:34] LABS: HCG Qualitative, Serum Negative (Negative)
[2022-11-17 13:41] LABS: ABG Oxygen Saturation 95 % (90-100); ABG PCO2 31.9 mmhg (35.0-45.0); ABG PH 7.39 mmol/L (7.35-7.45); ABG PO2 76.9 mmhg (80-100); ABG TCO2 19.9 mmhg (23-27)
[2022-11-17 13:43] LABS: Allen's Test Acceptable; Oxygen 21 %; Source Right Brachial
[2022-11-17 14:21] LABS: Microscopic, Urine URINE MICROSCOPIC (MICROSCOPIC)
[2022-11-17 14:25] LABS: Coronavirus 19, PCR Not Detected (NotDetected); Influenza A, PCR Not Detected (NotDetected); Influenza B, PCR Not Detected (NotDetected)
[2022-11-17 14:27] LABS: Appearance,Urine CLEAR (Clear); Blood, Urine 3+ (Negative); Color,Urine YELLOW (Yellow); Glucose,Urine (UA) Negative (Negative); Ketones,Urine 2+ (Negative); Leukocyte Esterase,Urine Negative (Negative); Nitrate,Urine Negative (Negative); Protein,Urine Negative (Negative); Urobilinogen,Urine 0.2 EU/dl (0.2)
[2022-11-17 14:33] LABS: Bilirubin,Urine 1+ (Negative)
[2022-11-17 14:44] LABS: RBC,Urine TNTC #/hpf (0-3); WBC,Urine Occasional #/hpf (0-3)
[2022-11-17 14:47] LABS: Amphetamine/Metha Screen,Urine Negative ng/ml (<1000)
--- NOTE | 2022-11-17 14:47 | PC.NURSE ---
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
[2022-11-17 14:48] LABS: Barbiturates Screen,Urine Positive ng/ml (<200); Benzodiazepines Screen,Urine Negative ng/ml (<200)
[2022-11-17 14:49] LABS: Cannabinoid Screen,Urine Negative ng/ml (<50)
[2022-11-17 14:50] LABS: Cocaine Screen,Urine Negative ng/ml (<300); Methadone Screen,Urine Negative ng/ml (<300)
[2022-11-17 14:51] LABS: Opiate Screen,Urine Negative ng/ml (<300); Phencyclidine Screen,Urine Negative ng/ml (<25)
--- NOTE | 2022-11-17 15:20 | PC.NURSE ---
speaking with hospitalist
--- NOTE | 2022-11-17 15:42 | PC.NURSE ---
day care supervisor called for admission
--- NOTE | 2022-11-17 16:43 | PC.NURSE ---
arrived to floor by w/c from ED
[2022-11-17 17:00] LABS: POC Glucose,Bedside 205 (70-110)
--- NOTE | 2022-11-17 17:47 | EXP.HP ---
History of Present Illness *Admission Date: 11/17/22 *Reason for visit:: Intractable nausea/vomiting *History of present illness: Patient discharged less than 72 hours ago presents with persistent nausea/vomiting. Patient's fianc? present at time evaluation with Dr. Neil in emergency room. I cannot keep anything down. Admits to severe nausea/vomiting with both solids/liquids since discharge. Tachycardic in emergency room. Denies coffee-ground emesis, hematemesis, hematochezia. States that she has follow-up appointment with gastroenterology December 09 as outpatient but I could not wait that long because I feel really bad. Denies fevers, chills, sick contacts as outpatient. [facility] Disclaimer: The information contained in this section may have been updated after the patient was seen, as this information can be updated by other users. Medical History Anxiety Diabetes mellitus, type 2 Hypertension Hypothyroid Surgical History History of cholecystectomy History of left oophorectomy History of tonsillectomy Family History Other Family history of hypertension Family history of hypothyroidism Family history of stroke Social History Smoking Status: Never smoker alcohol intake: never current occupational status: unemployed Travel in the last 8 weeks: None Review of Systems Review of Systems Review of systems:: pertinent systems reviewed and negative unless documented below Meds Home Medications and Allergies Home Medications Medication Instructions Recorded Confirmed Type colestipol 1 gram tablet 1 g PO DAILY Cholesterol 11/11/22 11/17/22 History escitalopram oxalate 20 mg tablet 20 mg PO DAILY Depression 11/11/22 11/17/22 History hydrochlorothiazide 25 mg tablet 25 mg PO DAILY High blood pressure 11/11/22 11/17/22 History levothyroxine 175 mcg tablet 175 mcg PO DAILY thyorid 11/11/22 11/17/22 History lisinopril 20 mg tablet 20 mg PO DAILY High blood pressure 11/11/22 11/17/22 History metformin 500 mg tablet,extended 500 mg PO BID Diabetes 11/11/22 11/17/22 History release 24 hr norgestimate-ethinyl estradiol 1 tab PO DAILY control 11/11/22 11/17/22 History 0.18 mg/0.215mg/0.25mg-35 mcg(28)tablet (Tri-Sprintec (28)) acetaminophen 325 mg tablet 650 mg PO Q6HP PRN MILD TO 11/12/22 11/17/22 Rx MODERATE PAIN #0 tabs albuterol sulfate 90 mcg/actuation 2 puff inhalation NEEDED PRN 11/12/22 11/17/22 History aerosol inhaler (Ventolin HFA) Shortness Of Breath prochlorperazine maleate 10 mg 10 mg PO Q8H PRN nausea and 11/13/22 11/17/22 Rx tablet (Compazine) vomiting #30 tabs tramadol 50 mg tablet 50 mg PO Q6HP PRN Mild To Moderate 11/13/22 11/17/22 Rx Pain 3 days #12 tabs calcium polycarbophil 625 mg 1,250 mg PO BID constipation 11/17/22 11/17/22 History tablet (FiberCon) pantoprazole 40 mg tablet,delayed 40 mg PO DAILY Acid reflux 11/17/22 11/17/22 History release sitagliptin phosphate 50 mg tablet 50 mg PO DAILY Diabetes 11/17/22 11/17/22 History ([place]) New Prescriptions to Start Prescriptions: Allergies Allergy/AdvReac Type Severity Reaction Status Date / Time No Known Allergies Allergy Verified 11/17/22 16:48 Exam Data for Last 24 hours Vital signs and Labs for Last 24 Hours: Temp Pulse Resp BP Pulse Ox 98.3 F 113 H 18 163/79 H 96 11/17/22 17:01 11/17/22 17:01 11/17/22 17:01 11/17/22 17:01 11/17/22 17:01 Laboratory Results - last 24 hr 11/17/22 12:00: Lipase 52, Acetone Level Small 11/17/22 12:18: WBC 11.3 H, RBC 5.26, Hgb 14.7, Hct 44.3, MCV 84.2, MCH 27.9, MCHC 33.2, RDW 14.0, Plt Count 414, MPV 7.8, Neut % (Auto) 88.7 H, Lymph % (Auto) 7.2 L, [place] % (Auto) 2.9, Eos % (Auto) 0.9, Baso % (Auto) 0.2, Neut # (Auto) 10.1 H, Lymph # (Auto
[2022-11-17 18:46] LABS: Procalcitonin 0.078 ng/mL (0.0-2.0)
[2022-11-18 00:01] LABS: POC Glucose,Bedside 149 (70-110)
--- NOTE | 2022-11-18 00:01 | NM_ITS ---
FINAL REPORT TECHNIQUE: Sequential anterior images were obtained after the ingestion of 2 whole eggs, 1 white toast with butter, and 6 ounce cup of water radiolabeled with 0.53 mCi technetium 99M sulfur colloid. CLINICAL HISTORY: Repeated nausea/vomiting unrelieved by antiemetics 9:15 am .53 mci tc sulfur colloid injected into 2 whole eggs 1 white toast with butter 6 oz cup of water COMPARISON: none FINDINGS: GASTRIC EMPTYING SCAN Static images show normal emptying of the stomach into the small bowel. Based on the time activity curve, the estimated half-emptying time is 173 minutes. IMPRESSION: Abnormally prolonged half emptying time consistent with gastroparesis or gastric outlet obstruction. Reviewed, Interpreted and Dictated by James Bo MD Transcribed by Cristine Euceda Authenticated and [facility]
[2022-11-18 04:00] VITALS: BP 145/94; PULSE 60; RESP 18; TEMP 36.7; O2SAT 97; BMI 60.8
[2022-11-18 05:25] LABS: POC Glucose,Bedside 144 (70-110)
--- NOTE | 2022-11-18 06:51 | PC.NURSE ---
PATIENT HAS NOT C/O N/V. FSBS THIS AM 144, NO INSULIN REQUIRED. APPEARED TO HAVE RESTED WELL.
[2022-11-18 08:00] VITALS: BP 168/92; PULSE 84; RESP 16; TEMP 36.7; O2SAT 99
[2022-11-18 08:04] LABS: Chloride 96 mmol/L (98-107); Sodium 136 mmol/L (136-145)
[2022-11-18 08:06] LABS: Basophils % 0.3 % (0.1-2.0); Eosinophils # 0.1 K/mm3 (0.0-0.4); Eosinophils % 1.5 % (0.1-12.0); Hematocrit 41.3 % (37.0-47.0); Hemoglobin 13.4 g/dL (12.2-16.2); Lymphocytes # 1.2 K/mm3 (0.7-4.5); Mean Corpuscular HGB Conc 32.4 g/dL (31.8-35.4); Mean Corpuscular Hemoglobin 27.2 pg (27.0-31.2); Mean Platelet Volume 7.9 fl (7.4-10.4); Monocytes # 0.9 K/mm3 (0.1-1.0); Monocytes % 10.6 % (1.7-9.3); Neutrophils % 72.6 % (37.0-80.0); Platelet Count 364 K/mm3 (142-424); Red Blood Count 4.92 M/mm3 (4.20-5.40); Red Cell Distribution Width 13.9 % (11.5-17.5); White Blood Count 8.3 K/mm3 (4.8-10.8)
[2022-11-18 08:07] LABS: Blood Urea Nitrogen 11 mg/dl (7-17); Carbon Dioxide 28 mmol/L (22.0-30.0); Cholesterol 154 mg/dl (140-200); Creatinine Clearance Estimated 83 mL/min (50-200); Estimated Glomerular Filt Rate 81 ml/min (>60); GFR (African American) 98 ML/MIN (>60); Lactic Acid 1.3 mmol/L (0.7-2.1); Triglycerides 319 mg/dl (30-150); VLDL Cholesterol 64 mg/dL (0-40)
[2022-11-18 08:08] LABS: Calcium 8.5 mg/dl (8.4-10.2); Chol/HDL Ratio 3.8 (1-3.5); Glucose 161 mg/dl (74-100); HDL Cholesterol 41 mg/dl (40-60); Magnesium 1.7 mg/dl (1.6-2.3); Phosphorous 2.8 mg/dl (2.5-4.5)
[2022-11-18 08:13] LABS: Anion Gap 15.1 mEq/L (5-15); Potassium 3.1 mmoL/L (3.5-5.1)
--- NOTE | 2022-11-18 08:18 | HMH.PHAINT1 ---
Pharmacy Intervention Comments: PATIENT'S HOME MEDICATION LIST VERIFIED WITH BOTH PATIENT AND EXTERNAL PHARMACY -[facility]LE[facility], PHARM STUDENT
[2022-11-18 08:44] LABS: Adenovirus F 40/41, stool Not Detected (NotDetected); Astrovirus Not Detected (NotDetected); Campylobacter Not Detected (NotDetected); Clostridium Difficile A/B, PCR Not Detected (NotDetected); Cryptosporidium Not Detected (NotDetected); Cyclospora Cayetanesis Not Detected (NotDetected); Entamoeba histolytica Not Detected (NotDetected); Enteroaggregative E coli Not Detected (NotDetected); Enteropathogenic E coli Not Detected (NotDetected); Enterotoxigenic E coli Not Detected (NotDetected); Giardia lamblia Not Detected (NotDetected); Norovirus Not Detected (NotDetected); Plesimonas Shigalloides, PCR Not Detected (NotDetected); Rotavirus A Not Detected (NotDetected); Salmonella, PCR Not Detected (NotDetected); Sapovirus Not Detected (NotDetected); Shiga-like toxin E coli Not Detected (NotDetected); Shigella Enterovasive E coli Not Detected (NotDetected); Vibrio Cholerae Not Detected (NotDetected); Vibrio, PCR Not Detected (NotDetected); Yersinia Entercolitica, PCR Not Detected (NotDetected)
--- NOTE | 2022-11-18 08:45 | PC.NURSE ---
TECH NOTE; NOTIFIED NURSE OF HIGH BLOOD PRESSURE FOR 0800 VITAL SIGNS Bart BARBA, SRNA
[2022-11-18 13:44] LABS: POC Glucose,Bedside 170 (70-110)
--- NOTE | 2022-11-18 14:12 | EXP.PN ---
Subjective *Date: 11/18/22 *Time: 14:12 Interval history: Patient's nausea/vomiting much improved since admission. Patient scheduled for gastric emptying study today. Very pleasant during interview. Willing to attempt clear liquid diet today. Exam Data for Last 24 hours Vital signs and Labs for Last 24 Hours: Temp Pulse Resp BP Pulse Ox 98.1 F 84 16 168/92 H 99 11/18/22 08:00 11/18/22 08:00 11/18/22 08:00 11/18/22 08:00 11/18/22 08:00 Laboratory Results - last 24 hr 11/17/22 12:18: Procalcitonin 0.078 11/17/22 13:57: Urine Opiates Screen Negative, Urine Methadone Screen Negative, Ur Barbituates Screen Positive H, Ur Phencyclidine Scrn Negative, Ur Amphetamines Screen Negative, U Benzodiazepines Scrn Negative, Urine Cocaine Screen Negative, U Marijuana (THC) Screen Negative 11/17/22 13:57: Urine Color Yellow, Urine Appearance Clear, Urine pH 6.0, Ur Specific [place] 1.020, Urine Protein Negative, Urine Glucose (UA) Negative, Urine Ketones 2+, Urine Blood 3+, Urine Nitrate Negative, Urine Bilirubin 1+ A, Urine Urobilinogen 0.2, Ur Leukocyte Esterase Negative, Urine RBC Tntc, Urine WBC Occasional, Ur Squamous Epith Cells 3-5, Urine Bacteria None 11/17/22 14:15: SARS-CoV-2 (PCR) Not detected, Influenza A Untype (PCR) Not detected, Influenza Type B (PCR) Not detected 11/17/22 16:49: POC Glucose 205 H 11/17/22 23:53: POC Glucose 149 H 11/18/22 05:16: POC Glucose 144 H 11/18/22 07:42: WBC 8.3 D, RBC 4.92, Hgb 13.4, Hct 41.3, MCV 84.0, MCH 27.2, MCHC 32.4, RDW 13.9, Plt Count 364, MPV 7.9, Neut % (Auto) 72.6, Lymph % (Auto) 15.0, [place] % (Auto) 10.6 H, Eos % (Auto) 1.5, Baso % (Auto) 0.3, Neut # (Auto) 6.0, Lymph # (Auto) 1.2, [place] # (Auto) 0.9, Eos # (Auto) 0.1, Baso # (Auto) 0.0 11/18/22 07:42: Sodium 136, Potassium 3.1 L, Chloride 96 L, Carbon Dioxide 28, Anion Gap 15.1 H, BUN 11, Creatinine 0.80, Estimated Creat Clear 83, Estimated GFR 81, Est GFR ( Amer) 98, Glucose 161 H, Calcium 8.5, Phosphorus 2.8, Magnesium 1.7, Triglycerides 319 H, Cholesterol 154, LDL Cholesterol Direct 67.40 L, VLDL Cholesterol 64 H, HDL Cholesterol 41, Cholesterol/HDL Ratio 3.8 H 11/18/22 07:42: Lactate 1.3 11/18/22 08:41: Stl Aeromonas (PCR) Not detected, Stl C. cayetanensis PCR Not detected, Stool Rotavirus (PCR) Not detected, Stl Adenov F 40/41 PCR Not detected, Stool Astrovirus (PCR) Not detected, Stool Campylobacter PCR Not detected, Stl C.difficile Tox PCR Not detected, Stool Cryptosporidium PCR Not detected, Stl E.coli Shiga Tox PCR Not detected, Stool E coli O157 PCR Not detected, Stl Enterotoxigenic E PCR Not detected, Stool EPEC (PCR) Not detected, Stool EAEC (PCR) Not detected, Stl E. histolytica PCR Not detected, Stool Giardia Lamblia PCR Not detected, Stool Salmonella PCR Not detected, Stool Sapovirus (PCR) Not detected, Stl P. shigelloides PCR Not detected, Stl Shigella/EIEC PCR Not detected, St Y.enterocolitica PCR Not detected, Stool Vibrio (PCR) Not detected, Stl Vibrio cholerae PCR Not detected, Stl Norovirus GI/GII PCR Not detected 11/18/22 13:14: POC Glucose 170 H I & O for Last 24 hours: Intake & Output 11/15/22 11/16/22 11/17/22 11/18/22 23:59 23:59 23:59 23:59 Intake Total 1717 / 1717 Output Total 200 / 200 200 / 200 Balance -200 / 40 1517 / 1517 Weight 160.373 kg 161.649 kg Constitutional Constitutional: no acute distress and cooperative *Routine HEENT Exam Head: Present normocephalic Eye: Present EOMI and normal accommodation ENT: Present mucous membranes moist *Routine Neck Exam Neck: Present supple and full ROM *Routine Respiratory Exam Respiratory: Present CTA bilaterally; Absent accessory muscle use *Routine Cardiovascular Exam Cardiovascular: Present RRR, Normal S1 and Normal S2 *Routine Abdominal Exam Abdominal: Present soft and normoactive bowel sounds *Routine Rectal Exam Comments: deferred *Routine Exam Comments: deferred *Routine Extremities Exam Extremities: Present full ROM and normal c
--- NOTE | 2022-11-18 14:44 | PC.NURSE ---
TECH NOTE; PT AMBULATED THE LENGTH OF HALLWAY ONCE, ACTIVITY TOLERATED WELL Bart BARBA, SRNA
[2022-11-18 14:59] VITALS: BP 143/88; PULSE 101; RESP 20; TEMP 36.6; O2SAT 97
[2022-11-18 16:00] VITALS: BP 145/95; PULSE 86; RESP 16; TEMP 36.4; O2SAT 98
--- NOTE | 2022-11-18 17:03 | PC.NURSE ---
Patient vomited once during shift after nuclear medicine test. Scheduled reglan and zofran given. Morphine given for pain from vomiting Relief noted a patient has not had any emesis or pain after. VS stable and patient remained on room air. Fluids not hooked back up per pt request. Patient able to tolerate oral intake.
[2022-11-18 17:09] LABS: POC Glucose,Bedside 126 (70-110)
[2022-11-18 20:00] VITALS: BP 117/76; PULSE 85; RESP 18; TEMP 36.6; O2SAT 97; O2SAT 98
--- NOTE | 2022-11-18 22:21 | PC.NURSE ---
HAS WALKED IN THE [place]ENO 3 TIMES THIS SHIFT ACCOMPANIED BY SIG OTHER. TOLERATED ACTIVITY WELL. NO C/O N/V/D OR PAIN. TO BE NPO AFTER MN FOR SMALL BOWEL FOLLOW THROUGH TOMORROW.
[2022-11-18 23:17] LABS: POC Glucose,Bedside 138 (70-110)
[2022-11-19 04:00] VITALS: BP 174/95; PULSE 89; RESP 18; TEMP 36.9; O2SAT 95; BMI 61.0
[2022-11-19 05:41] LABS: POC Glucose,Bedside 152 (70-110)
--- NOTE | 2022-11-19 06:24 | PC.NURSE ---
Has been medicated with zofran as scheduled, compazine PRN and Phenergan PRN for nausea and dry heaves. NPO since AL for UGI. Up in chair at thus time watching tv.
[2022-11-19 07:21] LABS: Basophils % 0.4 % (0.1-2.0); Eosinophils # 0.1 K/mm3 (0.0-0.4); Eosinophils % 0.7 % (0.1-12.0); Hematocrit 40.5 % (37.0-47.0); Hemoglobin 13.1 g/dL (12.2-16.2); Lymphocytes # 1.1 K/mm3 (0.7-4.5); Lymphocytes % 17.5 % (10-50); Mean Corpuscular HGB Conc 32.5 g/dL (31.8-35.4); Mean Corpuscular Volume 83.3 fl (81-99); Mean Platelet Volume 7.7 fl (7.4-10.4); Monocytes # 0.3 K/mm3 (0.1-1.0); Monocytes % 4.2 % (1.7-9.3); Neutrophils # 4.9 K/mm3 (1.8-7.8); Neutrophils % 77.1 % (37.0-80.0); Platelet Count 322 K/mm3 (142-424); Red Blood Count 4.86 M/mm3 (4.20-5.40); Red Cell Distribution Width 13.9 % (11.5-17.5); White Blood Count 6.3 K/mm3 (4.8-10.8)
[2022-11-19 07:27] VITALS: BP 163/102; PULSE 95; RESP 18; TEMP 36.9; O2SAT 98
[2022-11-19 07:28] LABS: Chloride 95 mmol/L (98-107); Potassium 3.2 mmoL/L (3.5-5.1); Sodium 135 mmol/L (136-145)
[2022-11-19 07:31] LABS: Anion Gap 17.2 mEq/L (5-15); Blood Urea Nitrogen 6 mg/dl (7-17); Carbon Dioxide 26 mmol/L (22.0-30.0); Creatinine Clearance Estimated 111 mL/min (50-200); Estimated Glomerular Filt Rate 112 ml/min (>60); GFR (African American) 136 ML/MIN (>60)
[2022-11-19 07:32] LABS: Calcium 8.4 mg/dl (8.4-10.2); Glucose 168 mg/dl (74-100); Magnesium 1.8 mg/dl (1.6-2.3)
--- NOTE | 2022-11-19 08:36 | PC.NURSE ---
COURTESY TECH NOTE; ROUNDED ON PT 0755, PT USING RESTROOM AT THIS TIME INDEPENDENTLY. PT WALKED LENGTH OF THE HALLWAY TWICE, BOTH ACTIVITIES TOLERATED WELL. PT C/O ANXIETY AT THIS TIME, NURSE NOTIFIED. CALL LIGHT WITHIN REACH, NO FURTHER REQUESTS AT THIS TIME ANIKA OLIVAS
--- NOTE | 2022-11-19 09:00 | FL_ITS ---
FINAL REPORT CLINICAL HISTORY: . INTRACTABLE NAUSEA AND VOMITING HX GALLBLADDER SURGERY 2:95 FLUORO TIME FINDINGS: UPPER GI WITH SBFT HISTORY: Acute epigastric pain with intractable nausea and vomiting. PROCEDURE: The patient ingested barium. Effervescent crystals were also administered. Spot and overhead films were obtained. Additional barium was administered for a SBFT. FLUOROSCOPY TIME: 2.95 minutes. 18 radiographs were obtained. FINDINGS: UGI: The esophagus is normal. There is no hiatal hernia. There is no gastroesophageal reflux. Peristalsis is normal. The rugal fold pattern of the stomach is normal. The duodenal bulb is normal. SBFT: The mint wafer depositor film is normal. There is no evidence of obstruction. The mucosal fold pattern is normal. The terminal ilium is normal. The appendix is normal. IMPRESSION: Normal UGI and SBFT. Films reviewed , interpreted and dictated by Dr. Bo. Transcribed by Erich Alexandra PA-C. Reviewed, Interpreted and Dictated by James Bo MD Transcribed by MU Crews Authenticated and . [facility]
[2022-11-19 12:06] LABS: POC Glucose,Bedside 146 (70-110)
[2022-11-19 13:08] VITALS: BMI 61.0
[2022-11-19 15:26] VITALS: BP 140/88; PULSE 95; RESP 18; TEMP 37.2; O2SAT 96
--- NOTE | 2022-11-19 16:04 | EXP.DC.SUM ---
General Admission date:: 11/17/22 Discharge date: 11/19/22 HPI HPI HPI: Patient discharged less than 72 hours ago presents with persistent nausea/vomiting. Patient's fianc? present at time evaluation with Dr. Neil in emergency room. I cannot keep anything down. Admits to severe nausea/vomiting with both solids/liquids since discharge. Tachycardic in emergency room. Denies coffee-ground emesis, hematemesis, hematochezia. States that she has follow-up appointment with gastroenterology December 09 as outpatient but I could not wait that long because I feel really bad. Denies fevers, chills, sick contacts as outpatient. Hospital Course Hospital Course Hospital Course: Patient readmitted to the hospital with intractable nausea/vomiting, and admitted for diabetic gastroparesis work-up. Gastric emptying study showed delayed stomach emptying pattern during hospitalization. Upper GI with small bowel follow-through done with results pending at time of hospital discharge. Upper GI with small bowel follow-through read by Dr. Neil with no overt abnormalities noted. Patient's nausea/vomiting rapidly improved during hospitalization as scheduled Zofran/Reglan. Patient able to tolerate regular diet by 10/30/2022 12:30 PM. Patient subsequently discharged home on Reglan with meals and as needed Phenergan. Patient has gastroenterology appointment scheduled for 12/09/2022. Patient also has primary care appointment scheduled for Tuesday. Exam Data for Last 24 hours Vital signs and Labs for Last 24 Hours: Temp Pulse Resp BP Pulse Ox 99.0 F 95 H 18 140/88 96 11/19/22 15:26 11/19/22 15:26 11/19/22 15:26 11/19/22 15:26 11/19/22 15:26 Laboratory Results - last 24 hr 11/18/22 16:58: POC Glucose 126 H 11/18/22 23:06: POC Glucose 138 H 11/19/22 05:32: POC Glucose 152 H 11/19/22 07:09: WBC 6.3, RBC 4.86, Hgb 13.1, Hct 40.5, MCV 83.3, MCH 27.0, MCHC 32.5, RDW 13.9, Plt Count 322, MPV 7.7, Neut % (Auto) 77.1, Lymph % (Auto) 17.5, [place] % (Auto) 4.2, Eos % (Auto) 0.7, Baso % (Auto) 0.4, Neut # (Auto) 4.9, Lymph # (Auto) 1.1, [place] # (Auto) 0.3, Eos # (Auto) 0.1, Baso # (Auto) 0.0 11/19/22 07:09: Sodium 135 L, Potassium 3.2 L, Chloride 95 L, Carbon Dioxide 26, Anion Gap 17.2 H, BUN 6 L D, Creatinine 0.60 D, Estimated Creat Clear 111, Estimated GFR 112, Est GFR ( Amer) 136 D, Glucose 168 H, Calcium 8.4, Phosphorus 3.0, Magnesium 1.8 11/19/22 11:46: POC Glucose 146 H I & O for Last 24 hours: Intake & Output 11/16/22 11/17/22 11/18/22 11/19/22 23:59 23:59 23:59 23:59 Intake Total 2346 / 2346 1456 / 1456 Output Total 200 / 200 200 / 200 251 / 251 Balance -200 / 40 2146 / 2146 1205 / 1205 Weight 160.373 kg 161.649 kg 162 kg Microbiology Reports for the Last 24 Hours: Microbiology 11/17/22 13:57 Urine,Clean Catch Urine Culture - Preliminary *Routine HEENT Exam Head: Present normocephalic Eye: Present EOMI and normal accommodation ENT: Present mucous membranes moist *Routine Neck Exam Neck: Present supple and full ROM *Routine Respiratory Exam Respiratory: Present CTA bilaterally; Absent accessory muscle use *Routine Cardiovascular Exam Cardiovascular: Present RRR, Normal S1 and Normal S2 *Routine Abdominal Exam Abdominal: Present soft and normoactive bowel sounds; Absent rebound or guarding *Routine Rectal Exam Comments: deferred *Routine Exam Comments: deferred *Routine Extremities Exam Extremities: Present full ROM and normal capillary refill *Routine Skin Exam Skin: Present intact and warm *Routine Neurological Exam Neurological: Present alert and oriented X3 Results Data Completed and Pending Labs on day of discharge: Labs from last 24 hours 11/19/22 11/19/22 11/19/22 11:46 07:09 07:09 WBC 6.3 RBC 4.86 Hgb 13.1 Hct 40.5 MCV 83.3 MCH 27.0 MCHC 32.5 RDW 13.9 Plt Count 322 MPV 7.7 Neut % (Auto) 77.1 Lymph % (Auto) 17.5 [place] % (Auto) 4.2 Eo
--- NOTE | 2022-11-22 13:47 | CARE MANAGER ---
Attempted to call patient to discuss recent discharge. Noel' answered and stated that she is doing well, he was at work and she doesn't have a phone to be reached at.
== END 2022-11-19 16:40 | disposition home or self-care (01) ==
LOC: ER 15:27 → 2ND 15:52
PROVIDERS: Admitting Provider Internal Medicine; Emergency Provider Emergency Medicine; PCP Student in an Organized Health Care Education/Training Program; Visit Provider Internal Medicine
DX: E11.43 Type 2 diabetes mellitus with diabetic autonomic (poly)neuropathy; K31.84 Gastroparesis; E03.9 Hypothyroidism, unspecified; I10 Essential (primary) hypertension; E11.9 Type 2 diabetes mellitus without complications; E66.2 Morbid (severe) obesity with alveolar hypoventilation; Z68.44 Body mass index [BMI] 60.0-69.9, adult; Z79.899 Other long term (current) drug therapy; Z79.84 Long term (current) use of oral hypoglycemic drugs
CPT/HCPCS: 36415; 74177; 74246; 74248; 78264; 80048; 80053; 80061; 80305; 81001; 82009; 82803; 82962; 83605; 83690; 83735; 84100; 84145; 84703; 85007; 85025; 87040; 87086; 87507; 87636; 99285; A9500; A9541; C9803; G0378; J0131; J2405; Q9967; U0003; U0005

== ENCOUNTER 2024-06-13 17:14 | Emergency (ER) | payer OTHER, SELFPAY ==
[2024-06-13 17:44] VITALS: BP 182/106; PULSE 106; RESP 20; TEMP 36.6; O2SAT 96; BMI 65.5
--- NOTE | 2024-06-13 17:49 | ED_ITS ---
Discharge Plan Disposition Patient Disposition: Home, Self-Care Condition: Good Prescriptions Prescriptions: New amoxicillin-pot clavulanate 875-125 mg tablet 1 tab PO Q12H 10 Days Qty: 20 0RF mupirocin 2 % ointment 1 applic topical BID Qty: 15 0RF No Action buspirone 15 mg tablet 15 mg PO ONCE pantoprazole 40 mg tablet,delayed release (DR/EC) 40 mg PO DAILY Januvia 50 mg tablet 50 mg PO DAILY calcium polycarbophil [FiberCon] 625 mg tablet 1,250 mg PO BID hydroxyzine HCl 25 mg tablet 25 mg PO Q12 PRN (Reason: anxiety) Qty: 30 1RF levothyroxine 175 mcg tablet 175 mcg PO DAILY lisinopril 20 mg tablet 20 mg PO DAILY norgestimate-ethinyl estradiol [Tri-Sprintec (28)] 0.18/0.215/0.25 mg-35 mcg (28) tablet 1 tab PO DAILY hydrochlorothiazide 25 mg tablet 25 mg PO DAILY colestipol 1 gram tablet 1 g PO DAILY escitalopram oxalate 20 mg tablet 20 mg PO DAILY metformin 500 mg tablet extended release 24 hr 500 mg PO BID Referrals Follow up/Referrals: Provider,Referral, MD [Primary Care Provider] - See instructions Activity Restrictions/Add. Instructions Additional Instructions/Restrictions: Monitor for signs and symptoms of worsening Monitor temperature If symptoms worsen or do not improve return Antibiotics as ordered Keep area clean and dry Clean area twice a day and apply antibiotic ointment Follow-up with primary care Clinical Impressions Clinical Impression: Cat bite Instructions Patient Instructions: DI for Cat Bite Print Language Print Language: Kyr[place] Discharge ED [facility] [place] HPI General Stated complaint: 06/10 cat bite - RT wrist Mode of Arrival: Ambulatory Source of Information: Patient Time Seen by Provider: 06/13/24 17:49 Description of Symptoms (Recalled from Triage Doc. by RN): CAT BITE ON RIGHT ARM HEENT Symptoms (Recalled from RN notes): No Resp Symptoms (Recalled from RN notes): No Skin Symptoms (Recalled from RN notes): Yes MS Symptoms (Recalled from RN notes): No Functional Status (Recalled from RN notes): WNL History of Present Illness Provider Complaint: 38-year-old female presents for a cat bite to the right hand and wrist that happened on Tuesday. Patient states it was her to have's cats got into a fight and she tried to separate them. Patient states the cats got vaccinated last year but has not had his rabies shots for this year but he stays in their house. Patient states she does not know when she had her last tetanus shot Related Data Home Medications ?Medication ?Instructions ?Recorded ?Confirmed colestipol 1 gram tablet 1 g PO DAILY diarrhea d/t 11/11/22 06/13/24 gallbladder removal escitalopram oxalate 20 mg tablet 20 mg PO DAILY Depression 11/11/22 06/13/24 hydrochlorothiazide 25 mg tablet 25 mg PO DAILY High blood pressure 11/11/22 06/13/24 levothyroxine 175 mcg tablet 175 mcg PO DAILY thyorid 11/11/22 06/13/24 lisinopril 20 mg tablet 20 mg PO DAILY High blood pressure 11/11/22 06/13/24 metformin 500 mg tablet,extended 500 mg PO BID Diabetes 11/11/22 06/13/24 release 24 hr norgestimate-ethinyl estradiol 1 tab PO DAILY control 11/11/22 06/13/24 0.18 mg/0.215mg/0.25mg-35 mcg(28)tablet (Tri-Sprintec (28)) calcium polycarbophil 625 mg 1,250 mg PO BID diarrhea 11/17/22 06/13/24 tablet (FiberCon) pantoprazole 40 mg tablet,delayed 40 mg PO DAILY Acid reflux 11/17/22 06/13/24 release sitagliptin phosphate 50 mg tablet 50 mg PO DAILY Diabetes 11/17/22 06/13/24 (Januvia) buspirone 15 mg tablet 15 mg PO ONCE 12/09/22 06/13/24 Previous Rx's ?Medication ?Instructions ?Recorded hydroxyzine HCl 25 mg tablet 25 mg PO Q12 PRN anxiety #30 tabs 11/19/22 amoxicillin 875 mg-potassium 1 tab PO Q12H 10 days #20 tabs 06/13/24 clavulanate 125 mg tablet mupirocin 2 % topical ointment 1 applic topical BID #15 grams 06/13/24 Allergies Allergy/AdvReac Type Severity Reaction Status Date / Time No Known Allergies Allergy Verified 12/09/22 12:43 Worker's Comp Is this a Worker's Comp case?: No PFSH [facility] Disclaimer: The information contained in this section may have been updated after the patient was seen, as this information can be updated by other users. Medical History , [employer]) Enteritis Gastroparesis Nausea and vomiting Upper abdominal pain Anxiety Diabetes mellitus, type 2 Hypothyroid Hypertension Surgical History , [employer]) History of left oophorectomy History of tonsillectomy History of cholecystectomy Family History , TE[employer]IST) Family history of stroke Family history of hypertension Family history of hypothyroidism Social History , TE[employer]IST) Smoking Status: Never smoker alcohol intake: never current occupational status: unemployed Travel in the last 8 weeks: None Have you lived/traveled outside [place] in past 30 days?: No Contact w/someone who lives/traveled outside [place] past 30 days?: No Exposure to someone with infectious disease in past 14 days?: No Do you have a fever (greater than 100.4 F or 38 C)?: No Have you tested positive for COVID-19: No Exposed to someone with COVID-19 in past 14 days?: No Do you have a sore throat?: No Do you have a cough?: No Do you have any weakness?: No Do you have any diarrhea?: No Are you experiencing any unusual bleeding?: No Do you have any muscle aches/pain?: No Do you have any abdominal pain?: No Are you experiencing loss of taste or smell?: No ROS Obtained: Yes Systems reviewed as appropriate & no additional complaints except as documented Integumentary/Breasts Skin/Breast: Reports system reviewed and no additional complaints, except as documented, Reports as per HPI and Reports other Physical Exam General General appearance: alert and in no apparent distress Eye Eye exam: Present normal appearance ENT ENT exam: Present normal exam Respiratory Respiratory exam: Present normal lung sounds bilaterally Cardiovascular Cardiovascular exam: Present regular rate and normal rhythm Expanded Upper Extremity Exam Right: L/R Arms Top View: 2 1. Puncture wound 2. Puncture wound 3. Puncture wound 4. Redness and swelling Neurological Exam Neurological exam: Present alert and oriented X3 Skin Skin exam: Present warm and other Medical Decision Making Medical Records Medical records reviewed: Yes I reviewed the patient's medical records. Screening: Per USPSTF and CDC recommendations, given the prevalence of disease in our region, it is our hospital?s policy to screen for HIV and viral Hepatitis for all patients aged 18 and over and those with ongoing risk factors. Pete Inquiry Pt receiving controlled substance: No Vital Signs: 06/13/24 17:44 Temperature 97.8 F Temperature Source Oral Pulse Rate [Left Radial] 106 H Respiratory Rate 20 Blood Pressure [Left Arm] 182/106 H Blood Pressure Mean [Left Arm] 131 02 Sat by Pulse Oximetry 96
[2024-06-13] MEDS: TET/DIPHTH/PERT-ADULT 0.5ML SYRINGE 0.5 ML IM (18:03)
[2024-06-13 18:09] VITALS: BP 182/106; PULSE 106; RESP 20; TEMP 36.6
== END 2024-06-13 18:10 | disposition home or self-care (01) ==
PROVIDERS: Emergency Provider Nurse Practitioner Family
DX: M79.641 Pain in right hand (principal); W55.01XA Bitten by cat, initial encounter
CPT/HCPCS: 90471; 90715; 99213; G0381